=== PATIENT | male | born 1985 | race Caucasian/White ===

== ENCOUNTER → 2019-12-31 09:00 | Outpatient (CLI) | payer OTHER, SELFPAY | PROVIDERS: PCP Family Medicine; Referring Provider Otolaryngology; Visit Provider Otolaryngology | DX: U07.1 COVID-19 (principal) | CPT/HCPCS: 87635; C9803; U0003 ==

== ENCOUNTER → 2020-02-10 09:15 | Outpatient (CLI) | payer OTHER, SELFPAY | PROVIDERS: PCP Family Medicine; Referring Provider Otolaryngology; Visit Provider Otolaryngology | DX: Z11.59 Encounter for screening for other viral diseases (principal) | CPT/HCPCS: 87635; C9803; U0003 ==

== ENCOUNTER → 2020-02-15 | Outpatient (CLI) | payer OTHER, SELFPAY ==
--- NOTE | 2020-02-15 10:14 | LES_PTH ---
PATIENT: KYLAH KEMP LOC: [facility] U#:[id number] AGE/SX: 34/M ROOM: RE02/15/[address]: Dr. Rey Root MD : 1985 BED: DIS: 02/15/2020 SPEC #: [id number] RECD: 02/15/20 14:57 STATUS: KEYANNA ESPINOZA #: [id number] HI: 02/15/20 10:[address]: Rey Root DEPT: SURGICAL PATHOLOGY RECD BY: Tiny Hyatt ENTERED: 02/16/20 09:32 SP TYPE: Lesion OTHR DR: Dr. Mir Lin MD [facility] Tissues: Skin of nose, NOS Procedures: Surgery Specimen Level IV HEADER OPERATION: Excision intranasal lesion left naris PRE-OP DIAGNOSIS: Benign neoplasm of middle ear, nasal cavity and accessing sinus TISSUE SUBMITTED: Intranasal neoplasm MICROSCOPIC DIAGNOSIS Intranasal neoplasm, biopsy: Consistent with fibroma. AM:jasmyn 02/17/20 MICROSCOPIC DESCRIPTION Slides are reviewed. GROSS DESCRIPTION Received is one container labeled with the patient's name and not further designated. The specimen consists of a piece of gill-white soft tissue measuring 0.4 x 0.3 x 0.2 cm. The specimen is inked and submitted entirely in one cassette. / SJ:jasmyn 02/16/20 TC:5 CPT: 85023
== END | disposition home or self-care (01) ==
PROVIDERS: PCP Family Medicine; Visit Provider Otolaryngology
DX: D14.0 Benign neoplasm of middle ear, nasal cavity and accessory sinuses (principal)
CPT/HCPCS: 88305

== ENCOUNTER → 2022-07-31 | Outpatient (CLI) | payer BC, SELFPAY ==
--- NOTE | 2022-07-30 15:08 | NASAL_PTH ---
PATIENT: KYLAH KEMP [facility] U#:[id number] AGE/SX: 36/M ROOM: RE07/31/[address]: Dr. Rey Root MD : 1985 BED: DIS: 07/31/2022 SPEC #: [id number] RECD: 07/31/22 15:04 STATUS: KEYANNA ESPINOZA #: [id number] HI: 07/30/22 15:[address]: Rey Root DEPT: SURGICAL PATHOLOGY RECD BY: Tiny Hyatt ENTERED: 08/01/22 11:14 SP TYPE: NASAL SPEC OTHR DR: Dr. Mir Lin MD [facility] Tissues: NASAL POLYP Procedures: Surgery Specimen Level IV HEADER OPERATION: Excision left intranasal mass PRE-OP DIAGNOSIS: Left intranasal neoplasm TISSUE SUBMITTED: Left intranasal mass MICROSCOPIC DIAGNOSIS Left intranasal mass, excision: Consistent with verrucous keratosis, favor verruca vulgaris. See comment. SJ:jasmyn 08/02/2022 COMMENT Clinical correlation and appropriate follow up are necessary. MICROSCOPIC DESCRIPTION Slides are reviewed. GROSS DESCRIPTION Received in fixative is one container labeled with the patient's name and designated left intranasal mass. The specimen consists of two irregular fragments of light gill soft tissue that in aggregate measure 1.0 x 0.2 x 0.1 cm. The specimen is totally submitted in one cassette. / AM:jasmyn 08/01/2022 TC:1 CPT: 90021
== END | disposition home or self-care (01) ==
LOC: LABSPEC 15:21
PROVIDERS: PCP Family Medicine; Referring Provider Otolaryngology; Visit Provider Otolaryngology
DX: C76.0 Malignant neoplasm of head, face and neck (principal)
CPT/HCPCS: 88304; 88305

== ENCOUNTER → 2024-01-27 | Outpatient (CLI) | payer BC, SELFPAY ==
--- NOTE | 2024-01-27 14:44 | RAD_ITS ---
STUDY: X-RAY - LUMBAR SPINE REASON FOR EXAM: Male, 38 years old. 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 COMPARISON: None FINDINGS: Normal lumbar lordosis. There is no substantial scoliosis. There is a normal alignment of the vertebrae. Normal vertebral bodies and endplates. Mild to moderate narrowing of the disc at L5-S1. All other disc levels are grossly normal. There is no demonstrated fracture. The soft tissue structures are unremarkable. RAD/Lumbar Spine 2 or 3 Views IMPRESSION: No acute abnormality. Loss of disc height at L5-S1. No other definite abnormalities. Electronically Signed: Jeremiah Sahni MD at 23:08 EDT ,
== END | disposition home or self-care (01) ==
LOC: RAD 14:33
PROVIDERS: PCP Family Medicine; Referring Provider Anesthesiology Pain Medicine; Visit Provider Anesthesiology Pain Medicine
DX: M96.1 Postlaminectomy syndrome, not elsewhere classified (principal)
CPT/HCPCS: 72100

== ENCOUNTER → 2024-02-28 | Outpatient (CLI) | payer BC, SELFPAY | END | disposition home or self-care (01) | PROVIDERS: PCP Family Medicine; Referring Provider Anesthesiology Pain Medicine; Visit Provider Anesthesiology Pain Medicine | DX: M96.1 Postlaminectomy syndrome, not elsewhere classified (principal) | CPT/HCPCS: 72148 ==